=== PATIENT | female | born 1970 | race Caucasian/White ===

== ENCOUNTER 2017-02-10 06:22 | Observation (INO) | payer OTHER, SELFPAY ==
--- NOTE | 2017-02-10 07:06 | PDHPUP ---
History & Physical Update H&P update statement: This history and physical update is based on an assessment of the patient which was completed after admission or registration (within 24 hours), but prior to the surgery/procedure. H&P update: H&P reviewed & patient examined, no change in patient's condition since H&P completed
[2017-02-10] MEDS ORDERED: ceFAZolin 2 GM/DEXTROSE 100 ML IV ONE (07:32)
[2017-02-10] MEDS ORDERED: LR 1,000 ML IV ONE (07:33)
[2017-02-10] MEDS ORDERED: fentaNYL 100 MCG/2 ML INJ ONE ×3 (07:48→13:55)
[2017-02-10] MEDS ORDERED: PROPOFOL 200 MG/20 ML VIAL ONE ×2 (07:49)
[2017-02-10] MEDS ORDERED: LIDOCAINE 1% 2 ML INJ ID PRN (07:53)
[2017-02-10] MEDS ORDERED: LIDOCAINE 2% 100 MG/5 ML SYR ONE (07:53)
[2017-02-10] MEDS ORDERED: ROCURONIUM 50 MG/5 ML VIAL ONE ×2 (07:53→09:52)
[2017-02-10] MEDS ORDERED: BUPIVACAINE 0.5% 30 ML SDV ONE (07:53)
[2017-02-10] MEDS ORDERED: LIDOCAINE 1% 300 MG/30 ML SDV ONE ×2 (07:54→10:01)
[2017-02-10] MEDS ORDERED: BUPIVACAINE 0.25% 30 ML SDV ONE (07:56)
[2017-02-10] MEDS ORDERED: MIDAZOLAM 2 MG/2 ML VIAL ONE (08:06)
[2017-02-10] MEDS ORDERED: MIDAZOLAM 2 MG/2 ML VIAL IVP ONE (08:12)
--- NOTE | 2017-02-10 08:16 | PDANEPAE ---
ANE History of Present Illness 46 yo F here for abdominal hernia repair, abdominoplasty, B brachioplasty ANE Past Medical History - Cardiovascular History Hx Hypertension: No Hx Arrhythmias: No Hx Chest Pain: No Hx Coronary Artery / Peripheral Vascular Disease: No Hx CHF / Valvular Disease: No Hx Palpitations: No - Pulmonary History Hx COPD: No Hx Asthma/Reactive Airway Disease: No Hx Recent Upper Respiratory Infection: No Hx Oxygen in Use at Home: No Hx Sleep Apnea: No Sleep Apnea Screening Result - Last Documented: Negative Pulmonary History Comment: seasonal allergies in spring and fall will make her a little wheezy - Neurologic History Hx Cerebrovascular Accident: No Hx Seizures: No Hx Dementia: No - Endocrine History Hx Diabetes: No Obesity: moderate Endocrine History Comment: pcos - Renal History Hx Renal Disorders: No - Liver History Hx Hepatic Disorders: No - Neurological & Psychiatric Hx Hx Neurological and Psychiatric Disorders: No - Cancer History Hx Cancer: No - Congenital Disorder History Hx Congenital Disorders: No - GI History GERD: moderate Hx Gastrointestinal Disorders: No - Other Health History Other Health History: none - Chronic Pain History Chronic Pain: No - Surgical History Prior Surgeries: 2009, 2007. exp lap 2004 or 2005. wili lap 1993 or 1994 ANE Review of Systems Review of systems is: negative - Exercise capacity Exercise capacity: >=4 METS METS (RN): 4 METS ANE Patient History - Allergies Allergies/Adverse Reactions: codeine Allergy (Verified 02/01/17 11:43) Other-Enter Comments NSAIDS (Non-Steroidal Anti-Inflamma Allergy (Verified 02/01/17 11:43) Anaphylaxis - Home Medications Home medications: home medication list seen and reviewed Home Medications: NK [No Known Home Meds] 02/01/17 [Last Taken Unknown] - NPO status NPO Since - Liquids (Date): 02/09/17 NPO Since - Liquids (Time): 22:30 NPO Since - Solids (Date): 02/09/17 NPO Since - Solids (Time): 22:30 - Anes Hx Anes Hx: no prior problems - Smoking Hx Smoking Status: Never smoked - Alcohol Use Alcohol Use: None - Family Anes Hx Family Anes Hx: none Family Hx Anesthesia Complications: none ANE Labs/Vital Signs - Vital Signs Blood Pressure: 160/87 Heart Rate: 85 Respiratory Rate: 15 O2 Sat (%): 97 Height: 166.37 cm Weight: 90.718 kg ANE Physical Exam - Airway Neck exam: FROM Mallampati Score: Class 2 Mouth exam: normal dental/mouth exam - Pulmonary Pulmonary: no respiratory distress, clear to auscultation - Cardiovascular Cardiovascular: regular rate and rhythym, no murmur, rub, or gallop ANE Anesthesia Plan Anesthesia Plan: general endotracheal anesthesia Lines/Monitors: central line (pt with difficult peripheral access, complicated by surgical location (B arms), need for possible central line discussed with patient, she agrees), additional IV
[2017-02-10] MEDS ORDERED: LIDOCAINE 0.5% 50 ML SDV ONE ×2 (08:37→11:16)
[2017-02-10] MEDS ORDERED: DEXAMETHASONE 4 MG/ML VIAL ONE (09:27)
[2017-02-10] MEDS ORDERED: HYDROmorphONE/DILAUDID 2 MG/ML INJ ONE (09:27)
[2017-02-10] MEDS ORDERED: ONDANSETRON 4 MG/2 ML VIAL ONE (09:27)
[2017-02-10] MEDS ORDERED: PROMETHAZINE HCL 25 MG/ML INJ IVP PRN ×2 (11:27→12:33)
[2017-02-10] MEDS ORDERED: HYDROmorphONE/DILAUDID 1 MG/ML SYR IVP PRN ×2 (11:27→12:33)
[2017-02-10] MEDS ORDERED: ONDANSETRON 4 MG/2 ML VIAL IVP PRN ×2 (11:27→12:33)
[2017-02-10] MEDS ORDERED: TEMAZEPAM 15 MG CAP PO PRN (11:27)
[2017-02-10] MEDS ORDERED: ceFAZolin 1 GM VIAL ONE (11:30)
--- NOTE | 2017-02-10 12:18 | POSTOPPROG ---
Post Op Note Date of Operation: 02/10/17 Surgeon: Chuy Davenport Culinary Artist: ROLA Anesthesiologist: LULY Anesthesia: GET(General Endotracheal) Pre-op Diagnosis: UMBILICAL HERNIA Post-op Diagnosis: SAME Indication: PAIN Procedure: UMBILICAL HERNIA REPAIR Findings: 10 CM DEFECT WITH ATTENTUATED FASCIA WELL Inf/Abcess present in the surg proc area at time of surgery?: No Depth: Organ Space EBL: Minimal Complications: 0
[2017-02-10] MEDS ORDERED: SUGAMMADEX SODIUM 200 MG/2 ML VIAL IVP ONE (12:20)
[2017-02-10] MEDS ORDERED: NALOXONE HCL 0.4 MG/ML INJ IVP PRN (12:33)
[2017-02-10] MEDS ORDERED: MEPERIDINE 25 MG/ML SYR IVP PRN (12:33)
[2017-02-10] MEDS ORDERED: HYDROmorphONE/DILAUDID 1 MG/ML SYR ONE ×2 (13:03→13:55)
[2017-02-10] MEDS ORDERED: PROMETHAZINE HCL 25 MG/ML INJ ONE (13:04)
[2017-02-10] MEDS ORDERED: LABETALOL HCL 5 MG/ML 20 ML MDV ONE (13:04)
[2017-02-10] MEDS: fentaNYL 100 MCG/2 ML INJ IVP PRN ×4 (13:05→15:12)
[2017-02-10] MEDS: HYDROmorphONE/DILAUDID 1 MG/ML SYR IVP PRN ×5 (13:09→14:18)
[2017-02-10] MEDS: LABETALOL HCL 50 MG/10 ML SYR IVP PRN ×2 (13:11→13:37)
[2017-02-10] MEDS ORDERED: LIDOCAINE 1% 5 ML SDV ONE (13:50)
[2017-02-10] MEDS ORDERED: ceFAZolin 2 GM/DEXTROSE 100 ML IV SCH (14:00)
--- NOTE | 2017-02-10 14:29 | POSTANESTH ---
Post Anesthetic Evaluation Cardiovascular Status: Normal, Stable, Similar to Pre-Op Cond, Tx Hyper/Hypo- tension Respiratory Status: Normal, Stable, Similar to Pre-op Cond. Level of Consciousness/Mental Status: Can Participate in Eval, Alert and Oriented Pain Control: Adequate, Prn Tx Ordered Nausea/Vomiting Control: Adequate, Prn Tx Ordered Complications Possibly Related to Anesthesia: None Noted
[2017-02-10] MEDS: ceFAZolin 2 GM/DEXTROSE 100 ML IV SCH (16:36)
[2017-02-10] MEDS: LR 1,000 ML IV SCH (16:37)
[2017-02-10] MEDS: ALPRAZolam 0.25 MG TAB PO SCH ×2 (16:41→23:39)
[2017-02-10] MEDS: HYDROCODONE/APAP 5/325 TAB PO PRN ×2 (16:51→20:51)
[2017-02-10 21:02] VITALS: RESP 16
--- NOTE | 2017-02-10 23:58 | GOP ---
[f rep st] OPERATIVE REPORT DATE OF OPERATION: 02/10/2017 SURGEON: Karol Monsivais Jr., MD CCTV TECHNICIAN: Dexter Mcadniel TELEMETRY RN, by surgeon request. ANESTHESIA: General inhalational. PREOPERATIVE DIAGNOSIS: 1. 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 2. 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 POSTOPERATIVE DIAGNOSIS: 1. 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 2. 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 PROCEDURE PERFORMED: 1. Abdominoplasty with adjuvant liposuction of flanks. 2. Bilateral brachioplasty. FINDINGS: ESTIMATED BLOOD LOSS: 100 cc. INDICATIONS: The patient is a 46-year-old white female referred from Dr. Chuy Davenport for consider ation of body contouring surgery to be performed in conjunction with repair of a large umbilical her duke. She had previously lost 50 pounds and developed a very significant abdominal wall laxity with a large umbilical hernia. Dr. Davenport was planning on repairing the hernia, and she elected to underg o body contouring as above as part of the procedure. DESCRIPTION OF PROCEDURE: After adequate inhalational general anesthesia was provided by Dr. Chano paulino, her premarked vertical abdominoplasty incisions were injected with 1% lidocaine containing adr enaline. She was prepped and draped in normal sterile fashion. Procedure began by making a large i ncision around her [place] umbilicus and umbilical hernia. Meticulous Metzenbaum scissor dissection was used to dissect the large umbilical stalk out down to the anterior abdominal wall fascia. The i nferior abdominoplasty incision was made using a #10 blade. Electrocautery was used to dissect down through Braeden's fascia to the anterior abdominal wall. The abdominoplasty flap was elevated aroun d the umbilical stalk. She was noted to have very significant abdominal wall weakness in conjunctio n with the abdominal wall herniation. At this point, Dr. Chuy Davenport scrubbed in and repaired the umbilical hernia primarily. At the completion of his portion of the procedure, the abdominal wall was repaired by plicating the lateral fascia to the midline using buried [id number] 0 Nurolon s utures. This helped reinforce the hernia repair. This was further oversewn with a running 0 V-Loc 180 suture. Vertical skin and fat excess was removed in a triangular shape to assure smooth contour . Minimal undermining was performed to minimize the area for seroma formation. Lateral fat was lef t down over the oblique musculature, again, to minimize seroma formation. She had [address] The abdomen was irrigated with normal saline. Meticulous hemostasis was assured. The anterior abdominal wall fascia was then injected with 30 cc of 0.5% plain Marcaine. Braeden's fascia was clos ed using 2-0 Vicryl suture. Skin edges reapproximated using everting deep dermal 3-0 Monocryl sutur e. Final skin eversion was carried out using surgical sherri. Tumescent solution was infiltrated into the flanks, and using a super wet technique, the fat was contoured using a 3.7 mm Vaser liposuc tion assisted cannula. Once the desired contour had been achieved, she had the drains placed to bul b suction. Bacitracin, Xeroform, 4x4s were applied to all incisions with compressive abdominal bind er. Attention was then turned to the arms. Her premarked brachioplasty incisions were injected wit h 1% lidocaine containing adrenaline. She was once again prepped and draped in normal sterile fashi on. Procedure began by making a posterior incision and tunneling down through the superficial fasci a to the muscle fascia. Some fat was left over the muscle fascia, again, to minimize seroma formati on. Care was taken at the elbow to minimize dissection using the electrocautery around the superfic ial course of the ulnar nerve. Once the posterior skin flap had been dissected, skin and fat to be excised was sharply marked. It was incised using a #10 blade. Hemostasis again assured. A 15 roun d GISSELLE drain was placed exiting through a lateral elbow incision. The superficial fascia was closed u sing 2-0 Vicryl suture, skin edges reapproximated using everting deep dermal 3-0 Monocryl suture, an d further skin eversion was carried out using surgical sherri. An identical procedure was performe d on the contralateral aspect phase. good contour of the upper extremity was appreciated. The drain s were placed to bulb suction. She had bacitracin, Xeroform, ABDs, and a lightly compressive [place] wr ap placed. She was extubated in the operating room, taken to recovery room awake and in stable cond ition. DRAINS: Four GISSELLE drains placed. COMPLICATIONS: No complications. CLINICAL COURSE: After risks and benefits of the procedure were explained to the patient highlighti ng bleeding, infection, visible scarring, recurrent herniations, poor cosmetic outcome, numbness, da mage to blood vessels, nerves, weakness, and need for revision surgery, postoperative formal operati ve consent was obtained. She was taken the operating room. /[id number]/MODL
[2017-02-11] MEDS: ceFAZolin 2 GM/DEXTROSE 100 ML IV SCH (00:31)
[2017-02-11] MEDS: LR 1,000 ML IV SCH ×2 (00:31→09:31)
[2017-02-11] MEDS: HYDROCODONE/APAP 5/325 TAB PO PRN ×3 (00:47→10:59)
[2017-02-11 07:57] VITALS: TEMP 98.1
[2017-02-11] MEDS: ALPRAZolam 0.25 MG TAB PO SCH (10:57)
--- NOTE | 2017-02-11 11:26 | SOAPPROG ---
SOAP Progress Note Assessment/Plan: Assessment: 46-year-old female postoperative day 1 status post umbilical hernia repair with abdominoplasty Her pain appears well controlled, her abdomen is soft, minimally tender and covered with appropriate dressings and abdominal binder. JPs appear serosanguineous. Discussed lifting precautions from hernia standpoint. Defer to Dr. Monsivais for bathing and other discharge precautions. Plan: 02/11/17 11:25 Subjective: A little sleepy, concerned that she desaturates when she sleeps Objective: Vital Signs Temp Pulse Resp BP Pulse Ox 36.7 C 83 16 125/66 H 96 02/11/17 07:55 02/11/17 07:55 02/11/17 07:55 02/11/17 07:55 02/11/17 07:55 02/10/17 02/11/17 02/12/17 05:59 05:59 05:59 Intake Total 3080 1999 Output Total 1867 620 Balance 1213 1380 ICD10 Worksheet Patient Problems: Problems Problem Status Onset Umbilical hernia Acute - ICD10 Problem Qualifiers (1) Umbilical hernia Qualifiers: Obstruction and gangrene presence: O
[2017-02-11 13:32] VITALS: BP 141/86; PULSE 97; O2SAT 90
[2017-02-11] MEDS ORDERED: ACETAMINOPHEN 325 MG TAB PO PRN (15:24)
== END 2017-02-11 16:07 | disposition home or self-care (01) ==
LOC: FSGY 06:22 → F3E 11:27 → F1N 15:29
PROVIDERS: ADMIT Specialist; ATTEND Surgery
PROC: 0WUF0JZ Supplement Abdominal Wall with Synthetic Substitute, Open Approach (ICD-10-PCS; principal; 2017-02-10 08:00)
PROC: 0J080ZZ Alteration of Abdomen Subcutaneous Tissue and Fascia, Open Approach (ICD-10-PCS; 2017-02-10 08:00)
PROC: 0J0F0ZZ Alteration of Left Upper Arm Subcutaneous Tissue and Fascia, Open Approach (ICD-10-PCS; 2017-02-10 08:00)
PROC: 0J0D0ZZ Alteration of Right Upper Arm Subcutaneous Tissue and Fascia, Open Approach (ICD-10-PCS; 2017-02-10 08:00)
DX: Z41.1 Encounter for cosmetic surgery (principal); K42.9 Umbilical hernia without obstruction or gangrene; E65 Localized adiposity; L98.7 Excessive and redundant skin and subcutaneous tissue
CPT/HCPCS: 15830; 15836; 49585; G0378; J0171; J0690; J1100; J1170; J2001; J2250; J2405; J2550; J2704; J3010; J3490